=== PATIENT | female | born 1980 | race Caucasian/White ===

== ENCOUNTER 2016-12-03 13:08 | Inpatient (IN) | payer MEDICAID, OTHER ==
[~2016-12-03] VITALS: Ht 152.4 cm; Wt 51.0 kg
[2016-12-03 14:23] LABS: BASOPHIL % 0.4 % (0-2); PLATELET COUNT 375 x10^3mcL (130-400); RED CELL DISTRIBUTION WIDTH 12.3 % (11.5-14.5)
[2016-12-03 14:32] LABS: CARBON DIOXIDE 31.6 mmol/L (21-32); CHLORIDE SERUM 103 mmol/L (98-107); CREATININE SERUM 0.6 mg/dL (0.6-1.0); GFR1 > 60 mL/min; GLUCOSE SERUM 99 mg/dL (74-106); POTASSIUM SERUM 3.8 mmol/L (3.5-5.1); SODIUM SERUM 140 mmol/L (136-145)
[2016-12-03 14:37] LABS: ALBUMIN 4.1 g/dL (3.4-5.0); ALKALINE PHOSPHATASE 95 U/L (46-116); ALT/SGPT 24 U/L (14-59); AST/SGOT 16 U/L (15-37); BILIRUBIN TOTAL 0.3 mg/dL (0.20-1.00); TOTAL PROTEIN, SERUM 7.7 g/dL (6.4-8.2)
[2016-12-03 16:21] LABS: AMYLASE 44 U/L (25-115); HDL CHOLESTEROL 53 mg/dL (40-60); LIPASE 172 IU/L (73-393); MAGNESIUM 2.6 mg/dL (1.8-2.4); PHOSPHOROUS 4.5 mg/dL (2.5-4.9)
[2016-12-03 16:23] LABS: CHOLESTEROL 231 mg/dL (<200); CHOLESTEROL/HDL RATIO 4.4; TRIGLYCERIDES 459 mg/dL (<150)
[2016-12-03 16:25] LABS: T3 TOTAL 1.32 ng/mL
[2016-12-03 16:28] LABS: FREE T4 1.12 ng/dL (0.76-1.46); FREE THYROXINE INDEX 3.4 ug/dL (1.4-4.5); T4(THYROXINE) 10.4 ug/dL (4.7-13.3)
[2016-12-03 16:39] VITALS: BP 114/70
[2016-12-03 16:42] VITALS: Ht 152.4 cm; Wt 51.0 kg
[2016-12-03 20:52] LABS: microscopic required? NO
[2016-12-03 20:58] LABS: urine erythrocyte NEGATIVE (NEGATIVE)
[2016-12-03 22:24] VITALS: BP 105/66
[2016-12-04 06:18] VITALS: BP 109/69
[2016-12-04 06:50] LABS: BASOPHIL % 0.8 % (0-2); PLATELET COUNT 323 x10^3mcL (130-400); RED CELL DISTRIBUTION WIDTH 12.4 % (11.5-14.5)
[2016-12-04 08:28] LABS: SODIUM SERUM 141 mmol/L (136-145)
[2016-12-04 08:29] LABS: CALCIUM 8.6 mg/dL (8.5-10.1); CARBON DIOXIDE 27.2 mmol/L (21-32); CHLORIDE SERUM 106 mmol/L (98-107); CREATININE SERUM 0.7 mg/dL (0.6-1.0); GFR1 > 60 mL/min; GLUCOSE SERUM 96 mg/dL (74-106); MAGNESIUM 2.4 mg/dL (1.8-2.4); PHOSPHOROUS 5.2 mg/dL (2.5-4.9)
[2016-12-04 09:52] VITALS: BP 102/62
[2016-12-04 14:00] VITALS: BP 90/52
[2016-12-04 18:00] VITALS: BP 106/69
[2016-12-04 21:55] VITALS: BP 98/65
[2016-12-05 05:34] VITALS: BP 108/63
[2016-12-05 07:55] VITALS: BP 95/66
[2016-12-05 09:34] VITALS: BP 95/66
[2016-12-05 09:35] VITALS: BP 95/66
[2016-12-05] MEDS ORDERED: LIPI10 PO (10:12)
[2016-12-05] MEDS ORDERED: MOT600 PO (10:15)
[2016-12-05] MEDS ORDERED: LIPITOR40 MG PO (10:27)
[2016-12-05] MEDS ORDERED: ATIVAN1 MG PO (11:04)
== END 2016-12-05 12:08 | disposition home or self-care (01) | DRG 203 ==
LOC: ED 13:08 → DU 15:13 → EDBD 15:13 → DU 16:16 → MU 12-05 06:53
PROVIDERS: Emergency Medicine; ADMIT Family Medicine
DX: M94.0 Chondrocostal junction syndrome [Tietze] (principal); E83.41 Hypermagnesemia; R42 Dizziness and giddiness; E78.2 Mixed hyperlipidemia; E83.39 Other disorders of phosphorus metabolism; F41.1 Generalized anxiety disorder; Z68.22 Body mass index [BMI] 22.0-22.9, adult; Z85.43 Personal history of malignant neoplasm of ovary
CPT/HCPCS: 82962; 83880; 84439; C9113; J1885; J2060; J7030; Q0092

== ENCOUNTER 2017-07-03 23:49 | Emergency (ER) | payer OTHER ==
[~2017-07-03] VITALS: Ht 152.4 cm; Wt 53.5 kg
[~2017-07-03 23:49] MED LIST: ATIVAN1 MG PO; LIPI10 PO; LIPITOR40 MG PO; MOT600 PO
[2017-07-03 23:56] VITALS: Ht 152.4 cm; Wt 53.5 kg
[2017-07-04 07:44] LABS: AMPHETAMINE QUAL UR NONE DETECTED (NEG <=1000)
[2017-07-04 07:57] LABS: BASOPHIL % 0.8 % (0-2); PLATELET COUNT 359 x10^3mcL (130-400); RED CELL DISTRIBUTION WIDTH 12.2 % (11.5-14.5)
[2017-07-04 08:19] LABS: CALCIUM 8.8 mg/dL (8.5-10.1); CARBON DIOXIDE 27.4 mmol/L (21-32); CHLORIDE SERUM 104 mmol/L (98-107); CREATININE SERUM 0.6 mg/dL (0.6-1.0); GFR1 > 60 mL/min; GLUCOSE SERUM 101 mg/dL (74-106); POTASSIUM SERUM 3.6 mmol/L (3.5-5.1); SODIUM SERUM 140 mmol/L (136-145)
[2017-07-04 08:24] LABS: ALBUMIN 3.8 g/dL (3.4-5.0); ALKALINE PHOSPHATASE 81 U/L (46-116); ALT/SGPT 24 U/L (14-59); AST/SGOT 15 U/L (15-37); BILIRUBIN TOTAL 0.2 mg/dL (0.20-1.00); HDL CHOLESTEROL 57 mg/dL (40-60); LIPASE 165 IU/L (73-393); TOTAL PROTEIN, SERUM 7.3 g/dL (6.4-8.2); TRIGLYCERIDES 171 mg/dL (<150)
[2017-07-04 08:28] LABS: T3 TOTAL 1.27 ng/mL
[2017-07-04 08:31] LABS: CHOLESTEROL 219 mg/dL (<200); CHOLESTEROL/HDL RATIO 3.8
[2017-07-04 08:33] LABS: FREE T4 1.11 ng/dL (0.76-1.46); FREE THYROXINE INDEX 3.2 ug/dL (1.4-4.5); T4(THYROXINE) 9.5 ug/dL (4.7-13.3)
[2017-07-04 10:40] VITALS: BP 115/73
== END 2017-07-04 10:25 | disposition home or self-care (01) ==
LOC: ED 23:49
PROVIDERS: Emergency Medicine
DX: R07.89 Other chest pain (principal); E78.00 Pure hypercholesterolemia, unspecified
CPT/HCPCS: 36415; 83880; 84439; Q0092

== ENCOUNTER 2017-10-05 16:44 | Emergency (ER) | payer OTHER ==
[~2017-10-05] VITALS: Ht 157.5 cm; Wt 52.2 kg
[2017-10-05 16:46] VITALS: Ht 157.5 cm; Wt 52.2 kg
[2017-10-05 18:25] LABS: BASOPHIL % 0.8 % (0-2); PLATELET COUNT 343 x10^3mcL (130-400); RED CELL DISTRIBUTION WIDTH 12.8 % (11.5-14.5)
[2017-10-05 18:31] LABS: CALCIUM 8.4 mg/dL (8.5-10.1); CARBON DIOXIDE 30.2 mmol/L (21-32); CHLORIDE SERUM 104 mmol/L (98-107); CREATININE SERUM 0.5 mg/dL (0.6-1.0); GFR1 > 60 mL/min; GLUCOSE SERUM 100 mg/dL (74-106); POTASSIUM SERUM 3.7 mmol/L (3.5-5.1); SODIUM SERUM 138 mmol/L (136-145)
[2017-10-05 18:57] VITALS: BP 119/89
== END 2017-10-05 18:57 | disposition home or self-care (01) ==
LOC: ED 16:44
PROVIDERS: Emergency Medicine
DX: F43.0 Acute stress reaction (principal); Z90.722 Acquired absence of ovaries, bilateral
CPT/HCPCS: 36415; Q0092; Q0162